=== PATIENT | female | born 1955 | race Caucasian/White ===

== ENCOUNTER 2018-07-24 06:01 | Inpatient (IN) | payer MEDICARE, OTHER ==
--- NOTE | 2018-07-17 09:59 | HP ---
Amended report to enter cosigning physician. HISTORY AND PHYSICAL: DATE OF ADMISSION/SURGERY: 07/24/18 DATE OF OFFICE VISIT: 07/16/18 SURGEON: Janice Singh MD* (dictated by RYLIE Fernandez). PROCEDURE: Right total knee arthroplasty. CHIEF COMPLAINT: Right knee pain. HISTORY OF PRESENT ILLNESS: Ms. Morelos is a 62-year-old female with continued complaints of right knee pain. She has failed conservative treatment and elected to proceed with a right total knee arthroplasty. PAST MEDICAL HISTORY: High cholesterol, hypertension, GERD, depression, anxiety , fibromyalgia, hypothyroidism, and sleep apnea. PAST SURGICAL HISTORY: Tonsillectomy, tubal ligation, hysterectomy, neuroma removal from the right foot, partial thyroidectomy, right shoulder arthroscopy, right knee arthroscopy, fallopian tube cyst removal, and cataract removal. CURRENT MEDICATIONS: 1. Levothyroxine 75 mcg a day. 2. Benazepril/hydrochlorothiazide 20/12.5 mg daily. 3. Venlafaxine 150 mg a day. 4. Clonazepam 1 mg at bedtime as needed. 5. Vitamin D3. 6. Meloxicam 7.5 mg twice a day. 7. Aspirin 81 mg a day. 8. Atorvastatin calcium 80 mg half a tab every day. 9. Mucinex as needed. 10. Omeprazole 40 mg twice a day. 11. Tylenol as needed. 12. Folic acid daily. 13. Vitamin C, biotin, and 1000 units of vitamin D everyday. ALLERGIES: MACRODANTIN, SULFA, and GABAPENTIN. FAMILY HISTORY: Cancer, coronary artery disease, and stroke. SOCIAL HISTORY: She is a 62-year-old female. She lives with her . She does not smoke or use drugs. Uses occasional alcohol. REVIEW OF SYSTEMS: A complete 14-point review of systems was reviewed with the patient, is positive for GERD and hypothyroidism. She denies a history of DVT, PE, hepatitis, HIV, or anesthesia problems. PHYSICAL EXAMINATION GENERAL: She is well developed, well nourished, in no acute distress. VITAL SIGNS: She stands 5 feet 5 inches tall, weighs 182 pounds. Her blood pressure is 128/78, heart rate is 72. HEENT: Normocephalic, atraumatic. NECK: Supple. No palpable lymph nodes. PULMONARY: Lungs are clear to auscultation bilaterally. CARDIAC: Regular rate and rhythm. Strong S1, S2. ABDOMEN: Soft, nontender, nondistended. NEUROLOGIC: She is alert and oriented x3. MUSCULOSKELETAL: Right lower extremity: The skin is intact. There are no open wounds or abrasions. There is moderate effusion of the knee joint. Some tenderness along the medial and lateral joint line. There is a 10-degree varus deformity. Range of motion is 5 to 120 degrees of flexion. Her calf is soft and nontender. She has a 2+ dorsalis pedis pulse. She is able to dorsiflex and plantar flex. ASSESSMENT AND PLAN: Ms. Morelos is a 62-year-old female with end-stage osteoarthritis of the right knee. She has failed conservative treatment and elected to proceed with a right total knee arthroplasty. The surgery is scheduled for 07/24/[address] Singh discussed the risks and benefits of the surgery at today's visit and all of her questions were answered. She will follow up Dr. Singh in 2 weeks after the surgery. RYLIE FERNANDEZ [id number]/[facility] #: [id number] [facility]
[~2018-07-24 06:01] MED LIST: Lactated Ringers 1000 ML Bag* 1,000 ML IV SCH; Tranexamic Acid 1,000 MG in NS 0.9% 50 ML* (outpatient use) IV SCH
[2018-07-24] MEDS ORDERED: ceFAZolin 2 GM in NS PREMIX(*) 2 GM/100 ML BAG IVPB ONE (06:03)
[2018-07-24] MEDS: Buffered Lidocaine 1% SYRIN* 1 ML/SYRINGE INTRADERM ONE ×2 (06:46→15:52)
[2018-07-24] MEDS ORDERED: Ropivacaine* 2 MG/ML 20 ML VIAL (0.2%) ONE (06:58)
[2018-07-24] MEDS ORDERED: Propofol* 10 MG/ML 20 ML BTL ONE (07:11)
[2018-07-24] MEDS ORDERED: Dexmedetomidine* 200 MCG/2 ML 2 ML VIAL ONE (07:12)
[2018-07-24] MEDS ORDERED: Lidocaine 2% PF * 5 ML VIAL ONE ×2 (07:12→07:15)
[2018-07-24] MEDS ORDERED: ROPIVACAINE 5 MG/ML 30 ML BTL (0.5%) ONE (07:12)
[2018-07-24] MEDS ORDERED: Midazolam* 1 MG/ML 2 ML VIAL (2 MG) ONE ×3 (07:13→09:00)
[2018-07-24] MEDS ORDERED: KETAMINE HCL* 50 MG/ML 10 ML VIAL ONE (07:13)
[2018-07-24] MEDS ORDERED: Propofol* 500 MG/50 ML BTL ONE (07:13)
[2018-07-24] MEDS ORDERED: Bupivacaine 0.5% SDV PF* 30ML VIAL ONE (07:15)
[2018-07-24] MEDS ORDERED: EPHEDrine (Pressors)* 50 MG/ML VIAL ONE (08:02)
[2018-07-24] MEDS ORDERED: Dexamethasone IV* 4 MG/ML 1 ML (4 MG) ONE (08:54)
[2018-07-24] MEDS ORDERED: Phenylephrine 10 MG/ML VIAL* 1 ML VIAL ONE (09:08)
[2018-07-24] MEDS ORDERED: HYDROmorphone INJ1* 1 MG/ML SYRINGE IV PRN (09:46)
[2018-07-24] MEDS ORDERED: Naloxone* 0.4 MG/ML 1 ML VIAL IV PRN (09:46)
[2018-07-24] MEDS ORDERED: Ketorolac INJ* 30 MG/ML 1 ML VIAL IV PRN (09:46)
[2018-07-24] MEDS ORDERED: Ondansetron INJ* 2 MG/ML VIAL IV PRN ×2 (09:46→10:28)
[2018-07-24] MEDS ORDERED: oxyCODONE/Acetamin 5/325 MG* TAB PO PRN (10:28)
[2018-07-24] MEDS ORDERED: Polyethylene Glycol 3350* 17 GM PACKET PO PRN (10:28)
[2018-07-24] MEDS ORDERED: Bisacodyl SUPP* 10 MG SUPP PR PRN (10:28)
[2018-07-24] MEDS ORDERED: Cyclobenzaprine TAB* 10 MG PO PRN (10:28)
[2018-07-24] MEDS ORDERED: Ondansetron TAB* 4 MG PO PRN (10:28)
[2018-07-24] MEDS ORDERED: Magnesium Hydroxide LIQ* 30 ML UDC PO PRN (10:28)
[2018-07-24] MEDS ORDERED: traMADol TAB* 50 MG PO PRN (10:28)
[2018-07-24] MEDS ORDERED: Morphine INJ* 2 MG/ML 1 ML SYRINGE (TWO MG - NEW SYRINGE VERSION) IV PRN (10:28)
[2018-07-24] MEDS ORDERED: Lactated Ringers 1000 ML Bag* 1,000 ML IV SCH (11:00)
--- NOTE | 2018-07-24 12:27 | CONS ---
CC: Otiliaaung Maier* CONSULTATION REPORT: DATE OF CONSULT: 07/24/18 SERVICE REQUESTING CONSULTATION: Orthopedics. PRIMARY CARE PHYSICIAN: Otilia Maier in [place], . REASON FOR CONSULTATION: Medical co-management. HISTORY OF PRESENT ILLNESS: This is a 62-year-old female who is now status post right total knee replacement after failing conservative management. The procedure was reportedly uncomplicated, performed by Dr. Singh on the day of consultation. The patient was seen in the PACU. She was interactive, although notably still sleepy. She denied any pain, shortness of breath, nausea, vomiting, lightheadedness or chest pain. She has good metabolic equivalents at baseline, however, limited by her pain in her knee. Of note, she does have obstructive sleep apnea, which she does not use CPAP for but does have mandibular advancement device. The medications were reviewed. PAST MEDICAL HISTORY: Includes hypertension, hyperlipidemia, hypothyroidism, depression, anxiety, GERD, fibromyalgia, osteoarthritis, obstructive sleep apnea with mandibular advancement device, restless leg syndrome. PAST SURGICAL HISTORY: Tubal ligation, tonsillectomy, foot neuroma, hysterectomy, thyroidectomy, rotator cuff on the right, knee surgery in 2011 of the meniscus, unilateral salpingectomy in 2003, cataract removal. HOME MEDICATIONS: Include: 1. Vitamin D. 2. Meloxicam. 3. Aspirin. 4. Omeprazole 40. 5. Tylenol. 6. Folic acid. 7. Vitamin C and biotin. 8. Lidoderm patch. 9. Clonazepam 1 mg at night for restless leg syndrome. 10. Levothyroxine 75 mcg. 11. Benazepril/hydrochlorothiazide 20/12.5. 12. Venlafaxine ER 150 mg. 13. Atorvastatin 80 mg. ALLERGIES: GABAPENTIN, NITROFURANTOIN, and SULFA DRUGS. FAMILY HISTORY: Father had depression, from suicide. Mother with hypertension, CVA and CAD. SOCIAL HISTORY: Patient denies tobacco, although PCP note indicates quitting in 2014. Occasional alcohol. No illicits. REVIEW OF SYSTEMS: As per HPI, otherwise all other systems negative. PHYSICAL EXAM: Vitals: 132/83, heart rate 84, respiratory rate is 16, 95% on room air, T-max 97.7. Lying flat, interactive, pleasant, in no apparent distress. Oropharynx is clear. She has moist mucous membranes. Sclerae are anicteric. She is regular rate and rhythm. No murmurs, rubs, or gallops. Lungs are clear to auscultation. Abdomen: Soft, nontender, nondistended. Extremities are warm and well perfused. Her right knee is wrapped. She has positive distal pulses, DP, PT. DIAGNOSTIC STUDIES/LAB DATA: Labs: No labs to review. Data: No data to review. X-ray not yet performed. ASSESSMENT AND PLAN: This is a 62-year-old female with past medical history of obstructive sleep apnea, restless leg syndrome, hypertension, postoperative day 0 of right total knee replacement. Right total knee replacement: Usual care per primary team. I would recommend minimizing narcotics in the postoperative setting, especially in the setting of obstructive sleep apnea in the absence of CPAP. Obstructive sleep apnea: The patient has mandibular advancement device. She has it in her bag. She has been instructed to use it. I have also placed a note to respiratory therapy as well as nursing to inform that the patient should be using it for sleep during the day or at night, especially important in the postoperative period, now in the perioperative period. Hypertension: Can continue home medication. Benazepril/hydrochlorothiazide and /or BUCK inhibitor where the hydrochlorothiazide at the lower dose. I have placed hold parameters on Laura Arcos's notes. Restless leg syndrome: The patient indicates that she takes clonazepam every night for her restless leg syndrome and very infrequently for her anxiety. The order is currently ordered as standing. I have placed hold parameters on the clonazepam to be held for respiratory rate less than 12 or sedation. Hypothyroidism: Continue home medication. Hyperlipidemia: Continue home medication. DVT prophylaxis: Per primary team, which seems to indicate Eliquis low dose 2.5 twice daily. We will continue to follow. Thank you for this consultation. Please do not hesitate to call with additional questions. [id number]/[facility] #: [id number] [facility]
[2018-07-24] MEDS: Acetaminophen IV 1GM/100ML * 1,000 MG/100 ML VIAL IVPB ONE ×2 (13:53→14:00)
[2018-07-24] MEDS ORDERED: oxyCODONE/Acetamin 5/325 MG* TAB ONE (13:58)
--- NOTE | 2018-07-24 14:16 | PN ---
Progress Note - Progress Note Date of Service: 07/24/18 Note: resting comfortably in recovery. Pain well controlled. dressing c/d/i. able to dorsi flex/plantar flex, 2+ DP pulse and intact sensation
[2018-07-24] MEDS: Acetaminophen TAB* 325 MG PO SCH ×2 (15:51→22:14)
[2018-07-24] MEDS: ceFAZolin 1 GM ADVAN(*) 1 GM in NS 0.9% 50 ML* 50 ML IVPB SCH (16:11)
[2018-07-24] MEDS: Atorvastatin* 40 MG TAB PO SCH (17:12)
[2018-07-24] MEDS: oxyCODONE/Acetamin 5/325 MG* TAB PO PRN ×2 (17:13→22:11)
--- NOTE | 2018-07-24 17:57 | OP ---
Operative Report - Blank - Operative Report Date of Operation: 07/24/18 Note: SHAVON RAO 1955 Date of Surgery: 07/24/18 Janice Singh MD Production Boring Machine Operator: Ada YOUNGBLOOD did help throughout the procedure with preparation of the knee, wound retraction, manipulation of the knee, and wound closure. Anesthesiologist: Steven OLIVER Anesthesia Type: Spinal Preoperative Diagnosis: Right severe degenerative osteoarthritis of the knee Postoperative Diagnosis: As above Procedure Performed: Right Total Knee Arthroplasty Tourniquet time: 50 minutes Complications: None Specimen: Bone and cartilage from the Right knee joint sent to pathology. Hardware Used: Cemented Eric [employer]hew total knee hardware was used - For the femur a size 5 narrow oxinium legion posterior stabilized femoral component, for the tibia a size 4 joan II tibial baseplate, for the insert a size 3-4 11 mm posterior stabilized articular polyethylene insert, and for the patella a size 29 3-peg all poly patella. Brief History/Indication: SHAVON RAO was known in clinic and had a history of severe right knee pain and swelling. She failed conservative treatment with anti-inflammatories, pain pills, intra-articular injections and physical therapy. She elected to undergo right total knee arthroplasty due to continued pain and decreased quality of life. Radiographs showed severe end stage osteoarthritis of the knee with bone on bone contact. Informed consent was obtained from the patient. She understood the risks of surgery included but were not limited to: bleeding, infection, damage to nearby structures, intraoperative fracture, nerve palsy, failure of the hardware, early loosening, knee stiffness or loss of motion, anesthesia complications, stroke, heart attack , blood clot and . She wished to proceed. Intra-Operative Findings: Intraoperatively the patient was noted to have severe loss of cartilage in all 3 compartments of the knee. Description of the Procedure: SHAVON RAO was identified in the preanesthesia unit. Her right knee was marked as the correct operative side. Informed consent was signed and placed in the chart. The patient was taken to the operating room and placed under anesthesia without complication. A vega catheter was placed. A tourniquet was placed on the right thigh. The right lower extremity was prepped and draped in the usual sterile fashion. Preoperative time-out was made to correctly identify the patient, side and site. Appropriate intraoperative antibiotics were given within one hour of incision. Tourniquet was inflated. A midline incision was made and carried sharply down to the extensor mechanism. A new 10 blade was used to make a standard medial parapatellar arthrotomy. The patella was subluxed laterally. Electrocautery was used to dissect soft tissue off the superomedial tibia to the midsagittal plane. The knee was flexed up. The anterior horn of the lateral meniscus and the ACL were sharply incised. A drill was used to enter the distal femur. The intramedullary distal femoral cutting guide was pinned on the distal femur. The oscillating saw was used to make the distal femoral cut. The external rotation guide was pinned on the distal femur and the distal femur was sized to a size 5. The size 5 multi-cutting jig was pinned on the distal femur. The oscillating saw was used to make the appropriate 4 chamfer cuts. Next the PCL was completely released. The extramedullary tibial cutting guide was pinned on the proximal tibia and the oscillating saw was used to make the proximal tibial cut perpendicular to the mechanical axis of the tibia. The bone was carefully removed. The knee was brought out into full extension. The spacer block was placed and had excellent fit with the knee in full extension. The medial and lateral ligaments were well balanced. The flexion and extension gaps were well balanced. The knee was flexed up. Lamina sales operations coordinator was placed both medially and laterally. Any remaining meniscus was removed with electrocautery. Curved osteotome was used to remove any posterior osteophytes. The tibial tray and drop anoop were placed and confirmed a satisfactory tibial cut. The size 5 narrow right femoral trial was impacted onto the distal femur. This trial had excellent fit and stability. The box for the posterior stabilized implant was prepared using a box cut osteotome and a reamer. Next a tibial tray trial and 9 mm insert trial was placed. The knee was taken through a range of motion and had full extension to 130 degrees of flexion. Patellofemoral tracking was satisfactory. The patella was inverted and sized to a size 29. Three peg holes were drilled through the size 29 drill guide. The trial patella was placed and the knee was taken through a range of motion. There was satisfactory patellofemoral tracking. All trials were removed. The tibia was subluxed anteriorly and sized to a size 4. The proximal tibial was prepared with a size 4 keel punch. All bony cut surfaces were irrigated with sterile saline and dried. Final implants were cemented into place starting with the tibia, followed by the femur, and last the patella. A 9 mm insert trial was placed and the knee was brought into full extension. Tourniquet was turned down and the knee was copiously irrigated with sterile saline. Electrocautery was used to obtain meticulous hemostasis. Once the cement had fully cured, the insert trial was removed. Any excess cement was removed from around the hardware and capsule. Final insert chosen was a 11 mm posterior stabilized Joan II articular insert size 3-4. Stability of the insert was checked and noted to be stable. The extensor mechanism was closed using number 1 vicryls. The rest of the incision was closed in a layered fashion using 0 and 2-0 vicryls. The skin was closed using 3-0 nylon suture. Sterile xeroform, 4x4s and webril were used to cover the incision. Ron wrap and cold pack were used to cover the dressings. The patients anesthesia was reversed without difficulty. She was taken to the PACU in stable condition. Intended weight-bearing will be as tolerated.
[2018-07-24] MEDS: oxyCODONE TAB* 5 MG TAB PO PRN (20:27)
[2018-07-24] MEDS: Pantoprazole TAB * 40 MG TAB PO SCH (20:28)
[2018-07-24] MEDS: Docusate CAP* 100 MG PO SCH (20:28)
[2018-07-24] MEDS: Magnesium Hydroxide LIQ* 30 ML UDC PO SCH (20:29)
[2018-07-24] MEDS ORDERED: clonazePAM TAB(*) 1 MG PO SCH (21:00)
[2018-07-24] MEDS: clonazePAM TAB(*) 1 MG PO SCH (22:12)
[2018-07-25] MEDS: oxyCODONE TAB* 5 MG TAB PO PRN ×3 (00:22→12:12)
[2018-07-25] MEDS: ceFAZolin 1 GM ADVAN(*) 1 GM in NS 0.9% 50 ML* 50 ML IVPB SCH ×2 (00:27→08:14)
[2018-07-25] MEDS: oxyCODONE/Acetamin 5/325 MG* TAB PO PRN ×3 (02:19→17:52)
[2018-07-25] MEDS: diPHENhydraMINE IV* 50 MG/ML 1 ml VIAL (BENADRYL) IV PRN ×2 (02:27→14:38)
[2018-07-25 05:42] LABS: Hematocrit 37 % (33-41); Hemoglobin 12.3 g/dL (12.0-16.0); Mean Platelet Volume 9.2 fL (7.4-10.4); Platelet Count 274 10^3/uL (150-450)
[2018-07-25 05:55] LABS: BUN/Creatinine Ratio 11.5 (8-20); Calcium 8.9 mg/dL (8.6-10.3); EGFR African American 119.5 (>60); EGFR Non-African American 98.7 (>60); Potassium 3.7 mmol/L (3.5-5.0)
[2018-07-25] MEDS: Levothyroxine TAB* 75 MCG TAB PO SCH (06:37)
[2018-07-25] MEDS: Acetaminophen TAB* 325 MG PO SCH ×3 (07:40→23:54)
[2018-07-25] MEDS: Venlafaxine EXT RELEASE CAP* 75 MG PO SCH (08:16)
[2018-07-25] MEDS: Magnesium Hydroxide LIQ* 30 ML UDC PO SCH ×2 (08:17→20:48)
[2018-07-25] MEDS: Lisinopril TAB* 10 MG PO SCH (08:17)
[2018-07-25] MEDS: Pantoprazole TAB * 40 MG TAB PO SCH ×2 (08:18→20:47)
[2018-07-25] MEDS: Docusate CAP* 100 MG PO SCH ×2 (08:18→20:48)
[2018-07-25] MEDS: Apixaban* 2.5 MG TAB PO SCH ×2 (08:18→20:47)
[2018-07-25] MEDS: Hydrochlorothiazide TAB* 25 MG PO SCH (08:18)
[2018-07-25] MEDS ORDERED: BENAZEPRIL PO SCH (09:00)
[2018-07-25] MEDS ORDERED: [UNRECOGNIZED DRUG - OTHER] PO SCH (09:00)
[2018-07-25] MEDS ORDERED: HYDROCHLOROTHIAZIDE PO SCH (09:00)
--- NOTE | 2018-07-25 09:26 | PN ---
Progress Note - Progress Note Date of Service: 07/25/18 SOAP: Subjective: []Patient seen at bedside. She is feeling very well with good pain control of her right knee. Denies CP, SOB, dizziness, nausea. Desires DC home this afternoon. Objective: []General: Well appearing, NAD RLE: Right knee dressing CDI, thigh is soft, DF/PF intact, sensation intact to light touch distally, DP2+ Calves supple and nontender without erythema, edema or palpable cords Assessment: []POD 1 sp right total knee replacement Dr Singh 07/24/18 Plan: []WBAT PT/OT eliquis 2.5 mg po bid x 30 days post op PLan for DC home this afternoon if PT goals met Will change dressing before DC Vital Signs Temp 98.6 F 07/25/18 07:43 Pulse 80 07/25/18 07:43 Resp 18 07/25/18 08:16 BP 124/67 07/25/18 07:43 Pulse Ox 94 07/25/18 07:43 Intake & Output 07/24/18 07/25/18 07/25/18 18:59 06:59 18:59 Intake Total 3850 1779 360 Output Total 3025 2400 Balance 825 -621 360 Intake: IV Fluids 3000 924 LR 3000 924 IVPB 55 ABX - CEFAZOLIN 55 Oral 850 800 360 Output: Goss 2775 2400 Estimated Blood Loss 250 Laboratory Last Values Hgb 12.3 g/dL (12.0-16.0) 07/25/18 05:10 Hct 37 % (33-41) 07/25/18 05:10 Plt Count 274 10^3/uL (150-450) 07/25/18 05:10 MPV 9.2 fL (7.4-10.4) 07/25/18 05:10 Sodium 139 mmol/L (135-145) 07/25/18 05:10 Potassium 3.7 mmol/L (3.5-5.0) 07/25/18 05:10 Chloride 102 mmol/L (101-111) 07/25/18 05:10 Carbon Dioxide 32 mmol/L (22-32) 07/25/18 05:10 Anion Gap 5 mmol/L (2-11) 07/25/18 05:10 BUN 7 mg/dL (6-24) 07/25/18 05:10 Creatinine 0.61 mg/dL (0.51-0.95) 07/25/18 05:10 Est GFR ( Amer) 119.5 (>60) 07/25/18 05:10 Est GFR (Non-Af Amer) 98.7 (>60) 07/25/18 05:10 BUN/Creatinine Ratio 11.5 (8-20) 07/25/18 05:10 Glucose 116 mg/dL (70-100) H 07/25/18 05:10 Calcium 8.9 mg/dL (8.6-10.3) 07/25/18 05:10
[2018-07-25] MEDS ORDERED: diPHENhydraMINE PO* 25 MG PO PRN (14:49)
--- NOTE | 2018-07-25 15:32 | PN ---
Subjective Date of Service: 07/25/18 Interval History: HOSPITALIST PROGRESS NOTE Patient seen and examined at bedside. Case reviewed and d/w Leonard Boyd RN. She felt nauseated and dizzy while ambulating with PT. At the time of my evaluation she was feeling better. Pain is controlled. Family History: Unchanged from Admission Social History: Unchanged from Admission Past Medical History: Unchanged from Admission Objective Active Medications: Acetaminophen (Tylenol Tab*) 975 mg PO Q8H [facility] Last Admin: 07/25/18 14:45 Dose: Not Given Apixaban (Eliquis*) 2.5 mg PO BID [facility] Last Admin: 07/25/18 08:18 Dose: 2.5 mg Atorvastatin Calcium (Lipitor*) 40 mg PO 1700 [facility] Last Admin: 07/24/18 17:12 Dose: 40 mg Bisacodyl (Dulcolax Supp*) 10 mg RI DAILY PRN PRN Reason: constipation Clonazepam (Klonopin Tab(*)) 1 mg PO BEDTIME [facility] Last Admin: 07/24/18 22:12 Dose: 1 mg Cyclobenzaprine HCl (Flexeril Tab*) 10 mg PO TID PRN PRN Reason: SPASMS Last Admin: 07/24/18 22:12 Dose: 10 mg Diphenhydramine HCl (Benadryl Iv*) 12.5 mg IV Q6H PRN PRN Reason: PRURITIS Last Admin: 07/25/18 14:38 Dose: 12.5 mg Diphenhydramine HCl (Benadryl Po*) 25 mg PO Q4H PRN PRN Reason: ITCHING Docusate Sodium (Colace Cap*) 100 mg PO BID [facility] Last Admin: 07/25/18 08:18 Dose: 100 mg Hydrochlorothiazide (Hydrodiuril Tab*) 12.5 mg PO QAM [facility] Last Admin: 07/25/18 08:18 Dose: 12.5 mg Lactated Ringer's (Lactated Ringers 1000 Ml Bag*) 1,000 mls @ 100 mls/hr IV PER RATE [facility] Last Admin: 07/25/18 00:28 Dose: 100 mls/hr Lactulose (Lactulose*) 30 ml PO Q6H PRN PRN Reason: constipation Levothyroxine Sodium (Synthroid Tab*) 75 mcg PO QAM@0600 [facility] Last Admin: 07/25/18 06:37 Dose: 75 mcg Lisinopril (Prinivil Tab*) 20 mg PO QAM [facility] Last Admin: 07/25/18 08:17 Dose: 20 mg Magnesium Hydroxide (Milk Of Magnesia Liq*) 30 ml PO BID [facility] Last Admin: 07/25/18 08:17 Dose: 30 ml Magnesium Hydroxide (Milk Of Magnesia Liq*) 30 ml PO Q6H PRN PRN Reason: constipation Morphine Sulfate (Morphine Inj (Syringe))*) 2 mg IV Q2H PRN PRN Reason: PAIN Last Admin: 07/24/18 15:48 Dose: 2 mg Ondansetron HCl (Zofran Inj*) 4 mg IV Q6H PRN PRN Reason: nausea Last Admin: 07/24/18 15:57 Dose: 4 mg Ondansetron HCl (Zofran Tab*) 4 mg PO Q6H PRN PRN Reason: NAUSEA Oxycodone HCl (Roxycodone Tab*) 10 mg PO Q4H PRN PRN Reason: SEVERE PAIN Last Admin: 07/25/18 12:12 Dose: 10 mg Oxycodone/Acetaminophen (Percocet 5/325 Tab*) 1 tab PO Q4H PRN PRN Reason: PAIN Last Admin: 07/24/18 13:58 Dose: 1 tab Oxycodone/Acetaminophen (Percocet 5/325 Tab*) 2 tab PO Q4H PRN PRN Reason: PAIN Last Admin: 07/25/18 08:16 Dose: 2 tab Pantoprazole Sodium (Protonix Tab*) 40 mg PO BID [facility] Last Admin: 07/25/18 08:18 Dose: 40 mg Polyethylene Glycol/Electrolytes (Miralax*) 17 gm PO DAILY PRN PRN Reason: Constipation Tramadol HCl (Ultram*) 50 mg PO Q6H PRN PRN Reason: PAIN Last Admin: 07/24/18 15:50 Dose: 50 mg Venlafaxine HCl (Effexor Xr Cap*) 150 mg PO QAM [facility] Last Admin: 07/25/18 08:16 Dose: 150 mg Vital Signs - 8 hr 07/25/18 07/25/18 07/25/18 07:43 08:00 08:16 Temperature 98.6 F Pulse Rate 80 Respiratory 16 18 18 Rate Blood Pressure 124/67 (mmHg) O2 Sat by Pulse 94 94 Oximetry 07/25/18 07/25/18 07/25/18 11:09 11:47 12:12 Temperature 98.8 F Pulse Rate 83 Respiratory 18 16 18 Rate Blood Pressure 129/55 (mmHg) O2 Sat by Pulse 94 Oximetry 07/25/18 07/25/18 07/25/18 14:38 14:41 15:18 Temperature 98.6 F Pulse Rate 87 Respiratory 18 18 17 Rate Blood Pressure 118/64 (mmHg) O2 Sat by Pulse 98 Oximetry Oxygen Devices in Use Now: None Appearance: Pleasant lady sitting up in a recliner in NAD. Eyes: No Scleral Icterus Ears/Nose/Mouth/Throat: Mucous Membranes Moist Neck: Trachea Midline Respiratory: Symmetrical Chest Expansion and Respiratory Effort, Clear to Auscultation Cardiovascular: NL Sounds; No Murmurs; No JVD, RRR Extremities: - - Cryo unit to right knee Neurological: Alert and Oriented x 3, NL Muscle Strength and Tone Result Diagrams: 07/25/18 05:10 07/25/18 05:10 Assess/Plan/Problems-Billing Assessment: Mrs Morelos is a 62yo F with PMH of HTN, HLD, hypothyroidism, GERD, BEKA, admitted for elective right TKA. - Patient Problems (1) S/P total knee arthroplasty Comment: - Management as per Ortho. (2) HTN (hypertension) Comment: - BP is controlled. - Continue HCTZ and lisinopril. (3) HLD (hyperlipidemia) Comment: - Continue Atorvastatin. (4) Anxiety Comment: - Continue Clonazepam. (5) Depression Comment: - Continue Venlafaxine. (6) Hypothyroidism Comment: - Continue Levothyroxine (7) DVT prophylaxis Comment: - Apixaban as per Ortho. (8) Full code status
[2018-07-25] MEDS: Atorvastatin* 40 MG TAB PO SCH (17:52)
[2018-07-25] MEDS: clonazePAM TAB(*) 1 MG PO SCH (20:48)
[2018-07-26] MEDS: oxyCODONE TAB* 5 MG TAB PO PRN (02:28)
[2018-07-26] MEDS: Levothyroxine TAB* 75 MCG TAB PO SCH (05:19)
[2018-07-26] MEDS: oxyCODONE/Acetamin 5/325 MG* TAB PO PRN ×2 (05:19→10:13)
[2018-07-26 06:24] LABS: Hematocrit 35 % (33-41); Hemoglobin 11.4 g/dL (12.0-16.0); Mean Platelet Volume 8.5 fL (7.4-10.4); Platelet Count 271 10^3/uL (150-450)
[2018-07-26] MEDS: Pantoprazole TAB * 40 MG TAB PO SCH (07:07)
[2018-07-26 08:12] VITALS: BP 113/62
[2018-07-26] MEDS: Docusate CAP* 100 MG PO SCH (08:19)
[2018-07-26] MEDS: Lisinopril TAB* 10 MG PO SCH (08:19)
[2018-07-26] MEDS: Hydrochlorothiazide TAB* 25 MG PO SCH (08:20)
[2018-07-26] MEDS: Apixaban* 2.5 MG TAB PO SCH (08:20)
[2018-07-26] MEDS: Venlafaxine EXT RELEASE CAP* 75 MG PO SCH (08:20)
[2018-07-26] MEDS: Acetaminophen TAB* 325 MG PO SCH (08:22)
[2018-07-26] MEDS: Magnesium Hydroxide LIQ* 30 ML UDC PO SCH (08:22)
--- NOTE | 2018-07-26 09:07 | PN ---
Progress Note - Progress Note Date of Service: 07/26/18 SOAP: Subjective: []Pt seen at bedside. She is ready for DC to home. Denies CP, SOB, dizziness, nausea. Right knee pain is well controlled. Objective: []General: Well appearing, NAD RLE: Right knee dressing changed incision is CDI, thigh is soft, DF/PF intact, sensation intact to light touch distally, DP2+ Calves supple and nontender without erythema, edema or palpable cords Assessment: []POD 2 sp right total knee replacement Dr Singh 07/24/18 Plan: []WBAT PT/OT eliquis 2.5 mg po bid x 30 days post op DC home today Vital Signs Temp 98.9 F 07/26/18 07:42 Pulse 94 07/26/18 08:18 Resp 18 07/26/18 08:23 BP 113/62 07/26/18 07:42 Pulse Ox 95 07/26/18 08:18 Intake & Output 07/25/18 07/26/18 07/26/18 18:59 06:59 18:59 Intake Total 2275 2000 480 Output Total 1400 1000 1150 Balance 875 1000 -670 Intake: IV Fluids 1085 ABX - CEFAZOLIN 105 LR 980 Oral 1190 2000 480 Output: Urine 1400 1000 1150 Laboratory Last Values Hgb 11.4 g/dL (12.0-16.0) L 07/26/18 06:01 Hct 35 % (33-41) 07/26/18 06:01 Plt Count 271 10^3/uL (150-450) 07/26/18 06:01 MPV 8.5 fL (7.4-10.4) 07/26/18 06:01 Sodium 139 mmol/L (135-145) 07/25/18 05:10 Potassium 3.7 mmol/L (3.5-5.0) 07/25/18 05:10 Chloride 102 mmol/L (101-111) 07/25/18 05:10 Carbon Dioxide 32 mmol/L (22-32) 07/25/18 05:10 Anion Gap 5 mmol/L (2-11) 07/25/18 05:10 BUN 7 mg/dL (6-24) 07/25/18 05:10 Creatinine 0.61 mg/dL (0.51-0.95) 07/25/18 05:10 Est GFR ( Amer) 119.5 (>60) 07/25/18 05:10 Est GFR (Non-Af Amer) 98.7 (>60) 07/25/18 05:10 BUN/Creatinine Ratio 11.5 (8-20) 07/25/18 05:10 Glucose 116 mg/dL (70-100) H 07/25/18 05:10 Calcium 8.9 mg/dL (8.6-10.3) 07/25/18 05:10
--- NOTE | 2018-07-26 09:17 | DS ---
Orthopedic Discharge Summary - Discharge Summary Date of Admission:07/25/18 Date of Discharge: 07/26/18 Date of Surgery: 07/24/18 Attending Orthopedic Provider: Dr Singh Pre-operative Diagnosis: right knee osteoarthritis Operative Procedure:Right total knee replacement History: SHAVON RAO is a 62 year old F with years of increasingly severe right knee pain. Patient has failed conservative management and has elected to undergo a right total knee replacement Hospital Course: SHAVON was admitted to [facility] on 07/25/18. Patient underwent a right total knee replacement without complication followed by a brief recovery in PACU and transfer to the Short Stay Surgical Unit in stable condition. Our hospitalist service, physical therapy and occupational therapy also participated in this patients care. Post-op day 1: patient was alert and in no acute distress. Dressing was clean, dry and intact. Operative extremity dorsiflexion and plantarflexion intact, sensation intact to light touch distally, DP2+. Post-op day two: dressing was changed, incision was clean , dry and intact. Patient was deemed to be medically and orthopedically stable for discharge home. Physical therapy goals were met. Discharge Medications Medication Instructions Recorded Confirmed Type Ascorbic Acid TAB* [Vitamin C 500 mg PO QAM 07/16/18 07/16/18 History TAB*] Aspirin 81 mg CHEW TAB* 81 mg PO QAM 07/16/18 07/16/18 History Atorvastatin* [Lipitor 80 MG*] 40 mg PO 1700 07/16/18 07/16/18 History Benazepril/Hydrochlorothiazide 1 tab PO QAM 07/16/18 07/16/18 History [Benazepril HCl/Hydrochlor 20-12.5 mg-] Biotin/Calcium Carbonate [Biotin 800 mcg PO QAM 07/16/18 07/16/18 History 800 Mcg Tablet] Cholecalciferol (Vitamin D3) 1,000 unit PO QAM 07/16/18 07/16/18 History [Vitamin D3] Folic Acid 800 mcg PO QAM 07/16/18 07/16/18 History Levothyroxine Sodium 75 mcg PO QAM 07/16/18 07/16/18 History Lidocaine [Lidoderm] 1 patch TRANSDERM QAM 07/16/18 07/16/18 History Omeprazole 40 mg PO BID 07/16/18 07/24/18 History Venlafaxine ER (NF) [Effexor ER 150 mg PO QAM 07/16/18 07/16/18 History (NF)] clonazePAM [Clonazepam] 1 mg PO BEDTIME 07/16/18 07/16/18 History Acetaminophen TAB* [Tylenol TAB*] 975 mg PO Q8H PRN tab 07/26/18 Rx Apixaban* [Eliquis*] 2.5 mg PO BID #60 tab 07/26/18 Rx Docusate CAP* [Colace Cap*] 100 mg PO BID PRN #90 cap 07/26/18 Rx oxyCODONE/Acetamin 5/325 MG* 2 tab PO Q4H PRN #70 tab MDD 10 07/26/18 Rx [Percocet 5/325 TAB*] Discharge Instructions following Orthopedic Surgery: Activity: * Weight Bearing as tolerated * Continue physical therapy and occupational therapy exercises as shown * attend physical therapy as instructed, may start right away - outpatient Wound care: * OK to shower on post-op day 3, no bathing, swimming, or submerging wound. * Use gentle soap, pat dry. Cover with gauze, BUCK wrap or tape. Call Orthopedic office for: * Increased drainage * Redness * Increased pain * Fever Go to ER with shortness of breath or chest pain. Diet: * Regular diet * Increase fluids and fiber to prevent constipation. * Continue to use stool softeners, call office if no bowel motion within 48 hours. Medications See Home Medication List in your packet for medications that you should take after discharge. DVT Prophylaxis Eliquis Dosin.5 mg, 1 tab every 12 hours x 30 days. Eliquis helps prevent blood clots, it thins your blood and does increase bleeding tendency Pain Control: Percocet 5/325 mg 1-2 tabs by mouth every 4-6 hours as needed for pain. Maximum of 10 tabs per day. Wean off of percocet as soon as pain allows. Hold percocet for sedation Please note that Percocet contains Tylenol (acetaminophen). Maximum daily dose of Tylenol is 4000 mg from all sources. Antibiotics are required prior to any dental work. FOLLOW UP: Follow up with [Francisco ] Within 10-14 days, call for appointment Please call our office with any questions or concerns ([phone]) RX to [facility]
== END 2018-07-26 12:00 | disposition home or self-care (01) | DRG 470 ==
LOC: OR 06:01 → INTOOBSV 14:43 → SSU 14:43 → OBSVTOIN 07-25 16:00
PROVIDERS: ADMIT Orthopaedic Surgery Adult Reconstructive Orthopaedic Surgery; ATTEND Orthopaedic Surgery Adult Reconstructive Orthopaedic Surgery
PROC: 0SRC069 Replacement of Right Knee Joint with Oxidized Zirconium on Polyethylene Synthetic Substitute, Cemented, Open Approach (ICD-10-PCS; principal; 2018-07-25)
DX: M17.0 Bilateral primary osteoarthritis of knee (principal); E78.00 Pure hypercholesterolemia, unspecified; I10 Essential (primary) hypertension; K21.9 Gastro-esophageal reflux disease without esophagitis; F41.9 Anxiety disorder, unspecified; F32.9 Major depressive disorder, single episode, unspecified; M79.7 Fibromyalgia; E03.9 Hypothyroidism, unspecified; M25.461 Effusion, right knee; M21.161 Varus deformity, not elsewhere classified, right knee; I83.90 Asymptomatic varicose veins of unspecified lower extremity; G47.33 Obstructive sleep apnea (adult) (pediatric); E78.5 Hyperlipidemia, unspecified; Z96.1 Presence of intraocular lens; G25.81 Restless legs syndrome; M25.761 Osteophyte, right knee; Z90.710 Acquired absence of both cervix and uterus; Z80.51 Family history of malignant neoplasm of kidney; Z82.61 Family history of arthritis; Z81.8 Family history of other mental and behavioral disorders; Z79.82 Long term (current) use of aspirin; Z79.01 Long term (current) use of anticoagulants; Z82.5 Family history of asthma and other chronic lower respiratory diseases; Z98.51 Tubal ligation status; Z98.49 Cataract extraction status, unspecified eye; Z88.2 Allergy status to sulfonamides; Z88.8 Allergy status to other drugs, medicaments and biological substances; Z82.49 Family history of ischemic heart disease and other diseases of the circulatory system; Z82.3 Family history of stroke; Z72.89 Other problems related to lifestyle; Z80.0 Family history of malignant neoplasm of digestive organs; Z87.891 Personal history of nicotine dependence; R11.0 Nausea; R42 Dizziness and giddiness
CPT/HCPCS: 36415; 80048; 85014; 85018; 85049; A9270-GY; C1776; G0378; G8978-GP-CK; G8979-GP-CI; G8987-GO-CJ; G8988-GO-CI; G8989-GO-CI; J0690; J1100; J1200; J2250; J2270; J2405; J2704; J2795